=== PATIENT | male | born 1980 | race Caucasian/White ===

== ENCOUNTER 2017-08-31 12:31 | Emergency (ER) | payer OTHER ==
[~2017-08-31] VITALS: Ht 177.8 cm; Wt 154.2 kg
[2017-08-31] MEDS ORDERED: KEFLEX500 M1 PO (14:19)
[2017-08-31 14:32] VITALS: BP 141/91
== END 2017-08-31 14:32 | disposition home or self-care (01) ==
LOC: M.ERS 12:31
DX: S81.811A Laceration without foreign body, right lower leg, initial encounter (principal); W26.8XXA Contact with other sharp object(s), not elsewhere classified, initial encounter; Y93.89 Activity, other specified; Y92.89 Other specified places as the place of occurrence of the external cause; Y99.8 Other external cause status

== ENCOUNTER 2017-11-21 21:25 | Emergency (ER) | payer OTHER ==
[~2017-11-21] VITALS: Ht 177.8 cm; Wt 149.7 kg
[~2017-11-21 21:25] MED LIST: KEFLEX500 M1 PO
[2017-11-21 21:52] LABS: ABSOLUTE BASOPHILS 0.1 thou/uL (0.0-0.2); ABSOLUTE EOSINOPHILS 0.1 thou/uL (0.0-0.7); ABSOLUTE LYMPHOCYTES 1.8 thou/uL (0.8-5.3); ABSOLUTE MONOCYTES 1.3 thou/uL (0.0-1.2); ABSOLUTE NEUTROPHILS 10.4 thou/uL (1.6-8.1); BASOPHILS 0.5 %; HEMATOCRIT 46.4 % (42.0-52.0); HEMOGLOBIN 15.4 gm/dL (14.0-18.0); LYMPHOCYTES 13.3 %; MCHC 33.2 g/dL (28.0-37.0); MCV 87.4 fL (80.0-100.0); MONOCYTES 9.8 %; MPV 7.5 fl. (7.2-11.1); NUCLEATED RBCS 0 /100WBC; PLATELET COUNT* 199 thou/uL (150-400); POLYS 75.4 %; RBC 5.31 mil/uL (4.50-6.00); RDW-CV 14.9 % (10.5-14.5); WBC 13.7 thou/uL (4.0-11.0)
[2017-11-21 22:02] LABS: CALCIUM 8.7 mg/dL (8.5-10.1); CREATININE 1.1 mg/dL (0.6-1.3); POTASSIUM 4.2 mmol/L (3.5-5.1)
[2017-11-21 22:13] LABS: ALBUMIN 3.3 g/dL (3.4-5.0)
[2017-11-21] MEDS ORDERED: TRAMADOL 50 MG50 MG PO (23:06)
[2017-11-21] MEDS ORDERED: IBUPROFEN 800800 M1 PO (23:06)
[2017-11-21] MEDS ORDERED: DOXYCYCLINE 10100 MG PO (23:06)
[2017-11-21 23:24] LABS: URINE BILIRUBIN NEGATIVE (Negative); URINE BLOOD 3+ (Negative); URINE CLARITY CLEAR; URINE COLOR YELLOW; URINE GLUCOSE-RANDOM NEGATIVE (Negative); URINE KETONES NEGATIVE (Negative); URINE PROTEIN NEGATIVE (Negative); URINE UROBILINOGEN 0.2 E.U./dl (0.2-1.0)
[2017-11-21 23:27] LABS: URINE LEUKOCYTES-REFLEX 2+ (Negative); URINE NITRITE-REFLEX POSITIVE (Negative)
[2017-11-21 23:30] LABS: AMP/METHAMP Negative (Negative); BARBITURATES Negative (Negative); BENZODIAZEPINES Negative (Negative); COCAINE Negative (Negative); METHADONE Negative (Negative); OPIATES Negative (Negative); PCP Negative (Negative); THC POSITIVE (Negative)
[2017-11-22] MEDS ORDERED: CIPRO500 MG PO (00:04)
[2017-11-22 00:25] VITALS: BP 157/88
[2017-11-22 00:29] LABS: CASTS None Seen /LPF (None Seen); SQUAMOUS 4-10 Moderate /LPF (0-3); URINE WBC-REFLEX >25 Many /HPF (0-5)
[2017-11-22 00:30] LABS: BACTERIA-REFLEX >30 Many /HPF (None Seen); CRYSTALS None Seen /LPF (None Seen)
== END 2017-11-22 00:30 | disposition home or self-care (01) ==
LOC: M.ERS 21:25
PROVIDERS: Nurse Practitioner Psychiatric/Mental Health
DX: N45.1 Epididymitis (principal); N20.0 Calculus of kidney

== ENCOUNTER 2019-01-21 12:16 | Inpatient (IN) | payer OTHER ==
[~2019-01-21] VITALS: Ht 180.3 cm; Wt 141.2 kg
[~2019-01-21 12:16] MED LIST changes: +CIPRO500 MG PO; +DOXYCYCLINE 10100 MG PO; +IBUPROFEN 800800 M1 PO; +TRAMADOL 50 MG50 MG PO
[2019-01-21 12:21] VITALS: BP 110/73
[2019-01-21 12:57] LABS: HEMATOCRIT 48.1 % (42.0-52.0); HEMOGLOBIN 16.4 gm/dL (14.0-18.0); MCH 29.7 pg (26.0-34.0); MCV 87.4 fL (80.0-100.0); MPV 7.6 fl. (7.2-11.1); NUCLEATED RBCS 0 /100WBC; PLATELET COUNT* 153 thou/uL (150-400)
[2019-01-21 13:11] LABS: CALCIUM 8.7 mg/dL (8.5-10.1); CREATININE 1.3 mg/dL (0.6-1.3); POTASSIUM 3.2 mmol/L (3.5-5.1)
[2019-01-21 13:19] LABS: ALBUMIN 3.2 g/dL (3.4-5.0); TOTAL BILIRUBIN 1.3 mg/dL (<0.1-1.0); TOTAL PROTEIN 7.2 g/dL (6.4-8.2)
[2019-01-21 13:22] LABS: ABSOLUTE EOSINOPHILS 0.2 thou/uL (0.0-0.7); ABSOLUTE LYMPHOCYTES 1.2 thou/uL (0.8-5.3); ABSOLUTE MONOCYTES 0.2 thou/uL (0.0-1.2); ABSOLUTE NEUTROPHILS 22.3 thou/uL (1.6-8.1); ANISOCYTOSIS 1+; PLATELET ESTIMATE ADEQUATE; POIKILOCYTOSIS 1+
[2019-01-21 15:25] VITALS: BP 145/88
[2019-01-21 15:50] VITALS: BP 102/63
[2019-01-21 17:28] VITALS: BP 129/68
--- NOTE | 2019-01-21 18:18 | NUR ---
PATIENT ADMITTED TO ROOM 116 FROM ER. PATIENT DROWSY BUT DOES AWAKE AND ANSWER TO LOUD VERBAL STIMILU. PATIENT CO HEADACHE AND PATIENT DID HAVE SLIGHT FEVER DEFER TO CHARTING, PRN TYLENOL GIVEN PER MAR ORDERS. IVF INFUSING, SCHED ABX INFUSED IN ER. LEFT LEG WOUND PHOTO TAKEN PER PROTOCOL. DR. LEIVA WAS NOTIFIED OF PATIENTS VITALS, ROUNDED ON PATIENT THIS EVENING. ANOTHER SET OF BLOOD CULTURES ORDERED, IVF BOLUS X 2 AND PATIENT TO HAVE DOPPLER OF LEFT LEG. ORIENTED TO CALL LIGHT. CALL LIGHT WITHIN REACH, WILL CONTINUE TO MONITOR.
[2019-01-21 20:30] VITALS: BP 136/88
[2019-01-22 01:00] LABS: URINE BILIRUBIN NEGATIVE (Negative); URINE BLOOD NEGATIVE (Negative); URINE CLARITY CLEAR; URINE COLOR YELLOW; URINE GLUCOSE-RANDOM NEGATIVE (Negative); URINE KETONES NEGATIVE (Negative); URINE LEUKOCYTES-REFLEX NEGATIVE (Negative); URINE NITRITE-REFLEX NEGATIVE (Negative); URINE PROTEIN NEGATIVE (Negative)
[2019-01-22 01:05] LABS: AMP/METHAMP POSITIVE (Negative); BARBITURATES Negative (Negative); BENZODIAZEPINES Negative (Negative); COCAINE Negative (Negative); METHADONE Negative (Negative); OPIATES Negative (Negative); PCP Negative (Negative); THC POSITIVE (Negative)
[2019-01-22 04:00] VITALS: BP 150/90
[2019-01-22 04:37] LABS: ABSOLUTE EOSINOPHILS 0.2 thou/uL (0.0-0.7); ABSOLUTE LYMPHOCYTES 0.7 thou/uL (0.8-5.3); ABSOLUTE MONOCYTES 0.8 thou/uL (0.0-1.2); ABSOLUTE NEUTROPHILS 17.3 thou/uL (1.6-8.1); BASOPHILS 0.2 %; EOSINOPHILS 1.2 %; HEMATOCRIT 46.9 % (42.0-52.0); HEMOGLOBIN 15.7 gm/dL (14.0-18.0); LYMPHOCYTES 3.8 %; MCH 29.7 pg (26.0-34.0); MCHC 33.4 g/dL (28.0-37.0); MCV 88.8 fL (80.0-100.0); MPV 8.6 fl. (7.2-11.1); NUCLEATED RBCS 0 /100WBC; PLATELET COUNT* 133 thou/uL (150-400); POLYS 90.8 %; RBC 5.28 mil/uL (4.50-6.00); RDW-CV 14.1 % (10.5-14.5)
[2019-01-22 04:59] LABS: CALCIUM 8.4 mg/dL (8.5-10.1); CREATININE 1.3 mg/dL (0.6-1.3); POTASSIUM 3.7 mmol/L (3.5-5.1)
--- NOTE | 2019-01-22 05:23 | NUR ---
PT SLEPT MOST OF SHIFT. ASSESSMENT DOCUMENTED. MEDS GIVEN PER E-MAR. IV PATENT, FLUIDS INFUSING. PT AGGITATED AT BEGINING OF SHIFT STATING HE DIDN'T KNOW HOW LONG HE HAD BEEN IN THE HOSPITAL BUT HE FELT LIKE IT WAS DAYS AND NOONE HAD FED HIM. PT ATE AND FELL BACK ASLEEP AND WAS DIFFICULT TO WAKE UP SEVERAL TIMES THIS SHIFT. URINE SENT TO LAB. PT STATED HE HAD PAIN BUT DID NOT WANT ANY PAIN MEDICAIONS BECAUSE "THE PAIN MADE HIM KNOW HE WAS ALIVE". WILL CONTINUE WITH PLAN OF CARE.
[2019-01-22 08:00] VITALS: BP 142/93
--- NOTE | 2019-01-22 11:06 | NUR ---
SW met with pt to attempt to complete assessment; pt was sleeping and did not awaken to SW speaking to pt. SW left resources/information for pt. SW to continue to follow to assist with safe dc planning.
[2019-01-22 11:30] VITALS: BP 135/83
[2019-01-22 15:55] VITALS: BP 156/92
--- NOTE | 2019-01-22 16:50 | NUR ---
PATIENT SLEPT MOST OF THE SHIFT. ATTEMPTED TO ELEVATE LEFT LEG BUT PATIENT WOULD NOT KEEP LEG ELEVATED. IVF AND SCHED IV ABX INFUSED ORDERED. PATIENT TOLERATING DIET. LARGE AMOUNT OF GILDARDO URINE NOTED THIS SHIFT. IBUPROFEN GIVEN X 1 FOR PAIN.
[2019-01-22 19:45] VITALS: BP 146/92
[2019-01-23 04:05] LABS: ABSOLUTE EOSINOPHILS 0.2 thou/uL (0.0-0.7); ABSOLUTE LYMPHOCYTES 0.8 thou/uL (0.8-5.3); ABSOLUTE NEUTROPHILS 12.3 thou/uL (1.6-8.1); BASOPHILS 0.1 %; EOSINOPHILS 1.7 %; HEMATOCRIT 44.1 % (42.0-52.0); HEMOGLOBIN 14.7 gm/dL (14.0-18.0); LYMPHOCYTES 5.3 %; MCH 29.6 pg (26.0-34.0); MCHC 33.3 g/dL (28.0-37.0); MCV 88.8 fL (80.0-100.0); MONOCYTES 6.9 %; MPV 8.4 fl. (7.2-11.1); NUCLEATED RBCS 0 /100WBC; PLATELET COUNT* 133 thou/uL (150-400); RBC 4.96 mil/uL (4.50-6.00); RDW-CV 13.8 % (10.5-14.5); WBC 14.4 thou/uL (4.0-11.0)
[2019-01-23 04:07] LABS: CALCIUM 8.5 mg/dL (8.5-10.1); CREATININE 1.1 mg/dL (0.6-1.3); POTASSIUM 3.8 mmol/L (3.5-5.1)
--- NOTE | 2019-01-23 05:39 | NUR ---
PT SLEPT MOST OF SHIFT. ASSESSMENT DOCUMENTED. MEDS GIVEN PER E-MAR. IV PATENT, FLUIDS INFUSING. PT REPORTED PAIN, TYLENOL GIVEN PER E-MAR. PT VERY DROWZY THIS SHIFT, YELLING OUT AT TIMES, PT ABLE TO BE REDIRECTED. WILL CONTINUE WITH PLAN OF CARE.
[2019-01-23 07:56] VITALS: BP 172/98
--- NOTE | 2019-01-23 11:39 | CON ---
[address] [address] CONSULTATION Name: BEATRIZ MEJIA Room: [address] IN .R.#: [id number] Admission: 01/21/19 Attend Phys: Sesar Mcclellan MD Discharge: Date of : 82 Report #: [id number] THIS REPORT FOR: //name// CC: Sesar Mcclellan [facility] physician/PCP DATE OF SERVICE: 01/22/2019 INFECTIOUS DISEASE CONSULTATION ATTENDING PHYSICIAN: Dr. Mcclellan. REASON FOR EVALUATION: Left lower extremity skin and soft tissue infection with cellulitis. HISTORY OF PRESENT ILLNESS: Chart reviewed and the patient examined. This is a 38-year-old without significant medical history, presented through the Emergency Room with complaints of pain associated with his left lower extremity. He had noted roughly 4-day history prior to admission of increasing inflammation kind of erythrodermic type eruption with associated swelling. There is, at this point, severe pain, making it difficult to ambulate. It is not clear if he had inciting injury. He was found to have temperature elevations as well as chills. He describes sweats as well, not had significant pulmonary-related or abdominal-related complaints, perhaps mildly diminished appetite. On evaluation, he was felt clinically to have a cellulitic process. Blood cultures collected and they are sterile thus far. White count was elevated to 24,000. Lactic acid 1.5. CRP elevated at 247.2. He did have a positive urine drug screen for amphetamine, methamphetamine as well as marijuana. Empirically started on antimicrobials, vancomycin, and was given a dose of ceftriaxone as well. He is somewhat somnolent at this point. ALLERGIES: MORPHINE. CURRENT MEDICATIONS: Include pantoprazole, vancomycin, enoxaparin, ondansetron, docusate sodium, acetaminophen, and ibuprofen. PAST MEDICAL/SURGICAL HISTORY: He has had previous surgery in his left leg and also his right upper extremity, and renal calculus. SOCIAL HISTORY: He does not smoke cigarettes. Also is confirmed to have illicit drug use. No ethanol. FAMILY HISTORY: Noncontributory. REVIEW OF SYSTEMS: Somewhat limited due to his encephalopathy, above noted in [place] [address] CONSULTATION Name: BEATRIZ MEJIA Room: [address] IN [facility]#: [id number] Admission: 01/21/19 Attend Phys: Sesar Mcclellan MD Discharge: Date of : 82 Report #: [id number] PHYSICAL EXAMINATION: GENERAL: Lying in a left lateral decubitus position. He does open his eyes to verbal stimuli. He appears to be in mild to moderate distress, not overtly engaged, appears to be reasonably well nourished. VITAL SIGNS: Temperature max recorded 101.6, more recently 98, pulse 90, respirations 17, and blood pressure 150/90. SKIN: Warm, dry, and no rashes. HEENT: Normocephalic. Extraocular muscles are intact. NECK: Supple. LUNGS: Clear to auscultation bilaterally. HEART: Regular. Borderline tachycardic. I do not appreciate any murmur. ABDOMEN: Soft and is mildly protuberant. There are no overt tenderness. EXTREMITIES: Left lower extremity has erythrodermic type eruption to below the knee on the left. There is some significant tenderness to light palpation, which extended particularly distally. There are no bullous lesions. I do not appreciate any fluctuance and no ulcerations that are apparent. He does have tattoos. GENITOURINARY/RECTAL: Deferred. LABORATORY/RADIOLOGIC DATA: Blood cultures sterile thus far. CRP elevated 247.2. Electrolytes today, sodium 139, potassium of 3.7, chloride 103, bicarbonate is 28, anion gap of 8, BUN and creatinine 30 and 1.3, and estimated GFR of 62. CBC; ____ initially was 24.0, repeat this morning was 19.0, hemoglobin and hematocrit 15.7 and 46.9, and platelets of 133. Urine drug screen was positive for noted above. Urinalysis is otherwise unremarkable. Venous Dopplers of lower extremity showed no evidence of deep vein thrombosis. Lactic acid serially was 1.5 and 1.0. ASSESSMENT AND PLAN: Left lower extremity inflammatory eruption, component of skin and soft tissue infection with cellulitis. At this point, we would assume a superficial to deep progression, skin tanner, Staphylococcus and Streptococcus. Continue the vancomycin for the moment and we will see how he does. At some point, we would like to add compression, encourage elevation. We will have to monitor expectantly, and add incentive spirometry. <ELECTRONICALLY SIGNED> By: Navi Dean MD 01/23/19 [id number] Dean MD /nt
[2019-01-23 16:00] VITALS: BP 155/101
--- NOTE | 2019-01-23 17:03 | NUR ---
PT A&Ox4. VITALS STABLE. LLE REMAINS SWOLLEN AND RED. IV L AC PATENT. UP STAND BY ASSIST. SLEPT MOST OF SHIFT. DENIED PAIN. CALL LIGHT WITHIN REACH. WILL CONTINUE TO MONITOR.
[2019-01-23 21:00] VITALS: BP 132/91
[2019-01-24 03:55] LABS: ABSOLUTE EOSINOPHILS 0.4 thou/uL (0.0-0.7); ABSOLUTE LYMPHOCYTES 1.5 thou/uL (0.8-5.3); ABSOLUTE MONOCYTES 0.8 thou/uL (0.0-1.2); ABSOLUTE NEUTROPHILS 6.4 thou/uL (1.6-8.1); BASOPHILS 0.3 %; EOSINOPHILS 4.5 %; HEMATOCRIT 41.9 % (42.0-52.0); HEMOGLOBIN 13.9 gm/dL (14.0-18.0); LYMPHOCYTES 16.6 %; MCH 29.3 pg (26.0-34.0); MCHC 33.2 g/dL (28.0-37.0); MCV 88.2 fL (80.0-100.0); MONOCYTES 8.4 %; MPV 8.1 fl. (7.2-11.1); NUCLEATED RBCS 0 /100WBC; PLATELET COUNT* 156 thou/uL (150-400); POLYS 70.2 %; RBC 4.76 mil/uL (4.50-6.00); RDW-CV 13.9 % (10.5-14.5); WBC 9.2 thou/uL (4.0-11.0)
[2019-01-24 04:15] LABS: CALCIUM 8.1 mg/dL (8.5-10.1); CREATININE 0.9 mg/dL (0.6-1.3); POTASSIUM 3.4 mmol/L (3.5-5.1)
--- NOTE | 2019-01-24 06:20 | NUR ---
PT ALERT AND ORIENTED. VSS ON RA. ASSESSMENT DOCUMENTED. MEDS GIVEN PER EMAR. GIRLFRIEND VISITED AND STAYED THE NIGHT. PT REFUSED COMPRESSION DRESSING YESTERDAY. WILL PASS ON TO NURSE TO ATTEMPT TODAY. CALL LIGHT WITHIN REACH. HOURLY ROUNDINGS MADE. WILL CONTINUE TO MONITOR.
[2019-01-24 08:00] VITALS: BP 144/66
--- NOTE | 2019-01-24 13:48 | NUR ---
Nutrition: Pt admitted with Lt leg cellulitis. Assessed for high BMI. Wt: 311#. Regular diet, appetite better. Albumin 3.2. Appears at low nutrition risk.
[2019-01-24 16:00] VITALS: BP 159/104
[2019-01-24 20:20] VITALS: BP 152/85
--- NOTE | 2019-01-24 20:47 | NUR ---
LEFT LEG CELLULITIS CONTINUES. PT IS ON ANTIBIOTICS. PAIN MEDICATION CHANGED TO IBUPROPHIN. PT WAS ABLE TO INDEPENDENTLY PERFORM ADLS. IV WAS LOST. PT DIFFICULT STICK. AWAITING NEW PLACEMENT. WOUND CONSULT ORDERED FOR TUBAGRIP FOR LEFT LEG. PT INSTRUCTED TO KEEP LEG ELEVATED BUT IS NONCOMPLIENT. FAMILY AT BEDSIDE.
[2019-01-24 20:57] VITALS: BP 144/58
--- NOTE | 2019-01-25 05:32 | NUR ---
NEW IV STARTED BY NSG SUP AT START OF SHIFT, ABX GIVEN ORDERED. LLE RED, EDEMATOUS AND WARM, ENCOURAGED PT TO KEEP ELEVATED ON PILLOW BUT ONLY OCCASIONALLY COMPLIANT. WOUND CARE TO SEE PT AND APPLY TUBIGRIP TODAY. UP WITH SBA, USING URINAL TO VOID INDEP OVERNIGHT. PT HOPEFUL FOR DISCHARGE SOON. ABLE TO USE CALL LITE AND MAKE NEEDS KNOWN. HAS NOT NEEDED PAIN MEDICATION SO FAR THIS SHIFT.
[2019-01-25 08:13] VITALS: BP 173/112
[2019-01-25 08:41] VITALS: BP 131/73
--- NOTE | 2019-01-25 14:13 | NUR ---
PT SEEN BY WOUND CARE TUBAGRIPS PLACED BILAT. TO F/U WITH HOME PHYSICIAN.
[2019-01-25 14:15] VITALS: BP 131/73
[2019-01-25] MEDS ORDERED: PROTONIX40 M1 PO (14:21)
[2019-01-25] MEDS ORDERED: MINOCIN50 MG PO (14:22)
[2019-01-25] MEDS ORDERED: TYLENOL EXTRA500 MG PO (14:24)
[2019-01-25] MEDS ORDERED: COLACE100 MG PO (14:25)
[2019-01-25] MEDS ORDERED: MIRALAX17 GM PO (14:26)
--- NOTE | 2019-01-25 14:44 | NUR ---
DISCHARGE INSTRUCTIONS GIVEN TO PATIENTS. PT STATES HE UNDERSTAND. PERSCRIPTIONS GIVEN TO PATIENT. PT EDUCATED ON DOSAGE FREQUENCY ROUTE AND TIME. PT STATED HE UNDERSTAND INSTRUCTIONS. DISCHARGE WITH WHEELCHAIR UPON RIDE ARRIVAL.
--- NOTE | 2019-01-25 16:10 | NUR ---
WOUND NURSE: PATIENT WAS PROVIDED WITH SINGLE LAYER SIZE G TUBIGRIPS TOES TO KNEE BLE TO EDEMA CONTROL REQUESTED. PATIENT INSTRUCTED ON THEIR USE AND ON SKIN CARE WITH GOOD UNDERSTANDING ACHIEVED.
== END 2019-01-25 14:51 | disposition home or self-care (01) | DRG 872 ==
LOC: M.ERS 12:16 → M.ORTHSURG 12:51 → M.TBA-ER 12:51 → M.ORTHSURG 15:33
PROVIDERS: Emergency Medicine Emergency Medical Services; ADMIT Internal Medicine
DX: A41.9 Sepsis, unspecified organism (principal); L03.116 Cellulitis of left lower limb; G93.40 Encephalopathy, unspecified; Z68.41 Body mass index [BMI] 40.0-44.9, adult; F17.210 Nicotine dependence, cigarettes, uncomplicated; E66.01 Morbid (severe) obesity due to excess calories; F19.10 Other psychoactive substance abuse, uncomplicated; I10 Essential (primary) hypertension; Z79.899 Other long term (current) drug therapy; Z88.5 Allergy status to narcotic agent

== ENCOUNTER 2020-06-19 15:36 | Emergency (ER) | payer OTHER ==
[~2020-06-19] VITALS: Ht 177.8 cm; Wt 145.2 kg
[~2020-06-19 15:36] MED LIST changes: +CLEOCIN HCL150 MG PO; +COLACE100 MG PO; +MINOCIN50 MG PO; +MIRALAX17 GM PO; +NORCO 7.5-3251 EACH PO; +PROTONIX40 M1 PO; +TYLENOL EXTRA500 MG PO
[2020-06-19 16:59] LABS: URINE BILIRUBIN NEGATIVE (Negative); URINE BLOOD NEGATIVE (Negative); URINE CLARITY SL CLOUDY; URINE COLOR YELLOW; URINE GLUCOSE-RANDOM NEGATIVE (Negative); URINE KETONES NEGATIVE (Negative); URINE LEUKOCYTES-REFLEX 1+ (Negative); URINE NITRITE-REFLEX NEGATIVE (Negative); URINE PROTEIN NEGATIVE (Negative); URINE UROBILINOGEN 0.2 E.U./dl (0.2-1.0)
[2020-06-19] MEDS ORDERED: DOXYCYCLINE 10100 MG PO (17:03)
[2020-06-19 17:06] LABS: BACTERIA-REFLEX >30 Many /HPF (None Seen); CASTS None Seen /LPF (None Seen); MUCUS 0-3 Light strn/LPF (None Seen); SQUAMOUS 4-10 Moderate /LPF (0-3); URINE RBC 0-2 Rare /HPF (0-2); WBC CLUMPS Few (None Seen)
[2020-06-19 17:07] LABS: AMORPHOUS URATES Moderate /LPF (None Seen)
[2020-06-19 18:00] VITALS: BP 158/89
== END 2020-06-19 18:00 | disposition home or self-care (01) ==
LOC: M.ERS 15:36
PROVIDERS: Physician Assistant
DX: L98.499 Non-pressure chronic ulcer of skin of other sites with unspecified severity (principal); F17.210 Nicotine dependence, cigarettes, uncomplicated